=== PATIENT | female | born 1960 | race Caucasian/White ===

== ENCOUNTER 2017-08-13 12:50 | Emergency (ER) | payer OTHER ==
[~2017-08-13] VITALS: Ht 152.4 cm; Wt 65.0 kg
[~2017-08-13 12:50] MED LIST: DILANTIN100 MG PO; FLEXERIL PO; LISINOPRIL5 MG PO; MOTRIN800 MG PO; NO HOME MEDS; ULTRAM50 M1 PO
[2017-08-13] MEDS ORDERED: LEVETIRACETAM500 MG PO (13:13)
[2017-08-13] MEDS ORDERED: BENADRYL 50MG C50 MG PO (13:20)
[2017-08-13] MEDS ORDERED: KEFLEX500 MG PO (13:20)
[2017-08-13] MEDS ORDERED: PREDNISONE50 MG PO (13:20)
[2017-08-13 13:30] VITALS: BP 133/78
== END 2017-08-13 13:30 | disposition home or self-care (01) | DRG 603 ==
LOC: ED 12:50
DX: L03.316 Cellulitis of umbilicus (principal); L29.9 Pruritus, unspecified; R21 Rash and other nonspecific skin eruption

== ENCOUNTER 2019-07-04 12:07 | Emergency (ER) | payer OTHER ==
[~2019-07-04] VITALS: Ht 152.4 cm; Wt 58.0 kg
[~2019-07-04 12:07] MED LIST changes: +BENADRYL 50MG C50 MG PO; +KEFLEX500 MG PO; +LEVETIRACETAM500 MG PO; +PREDNISONE50 MG PO
[2019-07-04 13:25] LABS: URINE BILIRUBIN - DIPSTICK NEGATIVE (NEGATIVE); URINE BLOOD DIPSTICK NEGATIVE (NEGATIVE); URINE COLOR YELLOW; URINE GLUCOSE - DIPSTICK NEGATIVE (NEGATIVE); URINE KETONE NEGATIVE (NEGATIVE); URINE LEUK ESTERASE NEGATIVE (NEGATIVE); URINE NITRITE - DIPSTICK NEGATIVE (Negative); URINE PROTEIN - DIPSTICK NEGATIVE (NEG-TRACE); URINE SPECIFIC GRAVITY <=1.005; URINE UROBILINOGEN - DIPSTICK 0.2 E.U./dL (0.2)
[2019-07-04] MEDS ORDERED: FLEXERIL5 M1 PO (14:39)
[2019-07-04 14:44] VITALS: BP 157/78
== END 2019-07-04 14:49 | disposition home or self-care (01) ==
LOC: ED 12:07
DX: S91.204A Unspecified open wound of right lesser toe(s) with damage to nail, initial encounter (principal); S70.01XA Contusion of right hip, initial encounter; M54.5 Low back pain; M62.838 Other muscle spasm; I10 Essential (primary) hypertension; F17.210 Nicotine dependence, cigarettes, uncomplicated; W22.09XA Striking against other stationary object, initial encounter; W18.30XA Fall on same level, unspecified, initial encounter; Y92.219 Unspecified school as the place of occurrence of the external cause

== ENCOUNTER 2023-07-20 15:03 | Emergency (ER) | payer OTHER ==
[~2023-07-20] VITALS: Ht 152.4 cm; Wt 56.6 kg
[~2023-07-20 15:03] MED LIST changes: +FLEXERIL5 M1 PO
[2023-07-20] MEDS ORDERED: BRIVIACT75 MG PO (15:25)
[2023-07-20 15:32] VITALS: BP 178/92
[2023-07-20 16:00] VITALS: BP 165/86
[2023-07-20 16:30] VITALS: BP 156/83
[2023-07-20 17:01] VITALS: BP 178/81
[2023-07-20] MEDS ORDERED: PAXLOVID PO (17:28)
[2023-07-20 17:46] VITALS: BP 178/81
== END 2023-07-20 17:56 | disposition home or self-care (01) ==
LOC: ED 15:03
DX: U07.1 COVID-19 (principal); J00 Acute nasopharyngitis [common cold]; I10 Essential (primary) hypertension; F17.210 Nicotine dependence, cigarettes, uncomplicated

== ENCOUNTER 2023-12-02 13:57 | Observation (INO) | payer OTHER ==
[~2023-12-02] VITALS: Ht 149.9 cm; Wt 57.8 kg
[2023-12-02] VITALS (13 sets, daily range): BP systolic 162–233; BP diastolic 67–106
[~2023-12-02 13:57] MED LIST changes: +BRIVIACT75 MG PO; +PAXLOVID PO
[2023-12-02 14:37] LABS: ALKALINE PHOSPHATASE 89 u/l (38-126); ANION GAP 11 (6-22 (CALC)); BUN 13 mg/dL (8-23); BUN/CREATININE RATIO 18 (12-20 (CALC)); CALCULATED LDLCHOLESTEROL 207 mg/dL (62-129 (CALC)); CARBON DIOXIDE 24 mmol/l (22-30); CHLORIDE 106 mmol/l (95-108); CHOLESTEROL HDL RATIO 6.3 (<4.4 (CALC)); CREATININE 0.7 mg/dL (0.5-1.0); GFR FOR AFR.AMER. > 60 ML/MIN (>=60 (CALC)); GFR OTHER RACES > 60 ML/MIN (>=60 (CALC)); HDL CHOLESTEROL 49 mg/dL (39.0-59.0); POTASSIUM 4.1 mmol/l (3.5-5.1); PROTHROMBIN TIME 9.6 SECONDS (9.0-12.5); SGOT/AST 30 u/l (9-36); SODIUM 137 mmol/l (137-146); TOTAL CHOLESTEROL 310 mg/dl (0-199); TOTAL PROTEIN 7.3 g/dL (6.3-8.2); TOTAL TRIGLYCERIDES 271 mg/dl (0-149); VLDL CHOLESTROL 54 mg/dl (1-41 (CALC))
[2023-12-02 14:40] LABS: ALBUMIN 4.4 g/dL (3.2-5.0); BILIRUBIN, TOTAL 0.7 mg/dL (0.02-1.3)
[2023-12-02 14:42] LABS: BASO% 0.3 % (0-3); HEMATOCRIT 42.1 % (37.0-47.0); IMMATURE GRANULOCYTES 0.6 % (0.0-5.0); LYMPH% 32.6 % (15-41); MEAN CELL VOLUME 91.3 fL CALC (80.0-100.0); MEAN CORPUSCULAR HGB 30.4 pG CALC (26.0-32.0); MEAN CORPUSCULAR HGB CONC 33.3 g/dL CAL (32.0-36.0); MONO% 5.9 % (2-13); NEUT# 4.7 thou/uL (2.00-7.15); NEUT% 60.6 % (42-76); RED BLOOD COUNT 4.61 mill/uL (4.20-5.60); RED CELL DISTRI WIDTH 13.1 % (11.5-15.5)
[2023-12-02] MEDS ORDERED: ASPIRINCHW 81MG PO (14:58)
[2023-12-02 14:59] LABS: URINE BILIRUBIN - DIPSTICK Negative (NEGATIVE); URINE BLOOD DIPSTICK Negative (NEGATIVE); URINE COLOR Yellow; URINE GLUCOSE - DIPSTICK Negative (NEGATIVE); URINE KETONE Negative (NEGATIVE); URINE LEUK ESTERASE Negative (NEGATIVE); URINE NITRITE - DIPSTICK Negative (Negative); URINE PROTEIN - DIPSTICK Negative (NEG-TRACE); URINE SPECIFIC GRAVITY 1.015; URINE UROBILINOGEN - DIPSTICK 0.2 E.U./dL (0.2)
[2023-12-03 00:02] VITALS: BP 145/68
[2023-12-03 04:02] VITALS: BP 144/69
[2023-12-03 04:42] LABS: BASO% 0.4 % (0-3); HEMATOCRIT 39.2 % (37.0-47.0); HEMOGLOBIN 13.1 g/dl (12.0-16.0); IMMATURE GRANULOCYTES 0.3 % (0.0-5.0); LYMPH% 39.2 % (15-41); MEAN CELL VOLUME 92.5 fL CALC (80.0-100.0); MEAN CORPUSCULAR HGB 30.9 pG CALC (26.0-32.0); MEAN CORPUSCULAR HGB CONC 33.4 g/dL CAL (32.0-36.0); MONO% 7.6 % (2-13); NEUT# 4.07 thou/uL (2.00-7.15); NEUT% 52.5 % (42-76); RED BLOOD COUNT 4.24 mill/uL (4.20-5.60); RED CELL DISTRI WIDTH 13.2 % (11.5-15.5)
[2023-12-03 05:09] LABS: ANION GAP 7 (6-22 (CALC)); BUN 14 mg/dL (8-23); BUN/CREATININE RATIO 17 (12-20 (CALC)); CALCULATED LDLCHOLESTEROL 199 mg/dL (62-129 (CALC)); CARBON DIOXIDE 28 mmol/l (22-30); CHLORIDE 106 mmol/l (95-108); CHOLESTEROL HDL RATIO 6.6 (<4.4 (CALC)); CREATININE 0.8 mg/dL (0.5-1.0); GFR FOR AFR.AMER. > 60 ML/MIN (>=60 (CALC)); GFR OTHER RACES > 60 ML/MIN (>=60 (CALC)); HDL CHOLESTEROL 44 mg/dL (39.0-59.0); POTASSIUM 4.3 mmol/l (3.5-5.1); SODIUM 137 mmol/l (137-146); TOTAL CHOLESTEROL 291 mg/dl (0-199); TOTAL TRIGLYCERIDES 239 mg/dl (0-149); VLDL CHOLESTROL 48 mg/dl (1-41 (CALC))
[2023-12-03 05:12] LABS: C-REACTIVE PROTEIN < 0.5 mg/dL (0-0.9)
[2023-12-03 07:26] VITALS: BP 178/81
[2023-12-03 10:22] VITALS: BP 179/96
[2023-12-03] MEDS ORDERED: PLAVIX75 MG PO (14:03)
[2023-12-03] MEDS ORDERED: ATORVASTATIN CA40 MG PO (14:04)
[2023-12-03 15:18] VITALS: BP 178/81
[2023-12-03 15:21] VITALS: BP 137/70
== END 2023-12-03 15:31 | disposition home or self-care (01) ==
LOC: ED 13:57 → ED-I 14:34 → ED 15:37 → MS2 15:38
PROVIDERS: Family Medicine; ADMIT Student in an Organized Health Care Education/Training Program; ATTEND Student in an Organized Health Care Education/Training Program
DX: G45.9 Transient cerebral ischemic attack, unspecified (principal); I10 Essential (primary) hypertension; F40.240 Claustrophobia; G40.909 Epilepsy, unspecified, not intractable, without status epilepticus; F17.200 Nicotine dependence, unspecified, uncomplicated; Z79.82 Long term (current) use of aspirin
CPT/HCPCS: G0378; J1650; Q9967

== ENCOUNTER 2024-08-21 03:36 | Emergency (ER) | payer OTHER ==
[2024-08-21] VITALS (13 sets, daily range): BP systolic 99–210; BP diastolic 55–137
[~2024-08-21] VITALS: Ht 152.4 cm; Wt 58.0 kg
[~2024-08-21 03:36] MED LIST changes: +ASPIRINCHW 81MG PO; +ATORVASTATIN CA40 MG PO; +PLAVIX75 MG PO
[2024-08-21] MEDS ORDERED: oxyCODONE 5MG/ ACETAMINOPHEN 325MG TAB PO ONE (03:55)
[2024-08-21] MEDS ORDERED: ENALAPRILAT 1.25 MG/ML 1ML IV ONE (05:05)
[2024-08-21] MEDS ORDERED: hydrALAZINE HCL 25 MG/TAB PO ONE (05:15)
[2024-08-21] MEDS ORDERED: PERCOCET 5/325M1 TAB PO (05:24)
== END 2024-08-21 06:30 | disposition home or self-care (01) ==
LOC: ED 03:36
DX: G89.18 Other acute postprocedural pain (principal); I10 Essential (primary) hypertension; E78.5 Hyperlipidemia, unspecified; G40.909 Epilepsy, unspecified, not intractable, without status epilepticus; I25.2 Old myocardial infarction; F17.200 Nicotine dependence, unspecified, uncomplicated; T46.5X6A Underdosing of other antihypertensive drugs, initial encounter; Z91.128 Patient's intentional underdosing of medication regimen for other reason; Z86.73 Personal history of transient ischemic attack (TIA), and cerebral infarction without residual deficits; Z88.8 Allergy status to other drugs, medicaments and biological substances